=== PATIENT | male | born 2005 | race Caucasian/White ===

== ENCOUNTER 2023-03-08 15:40 | Emergency (ER) | payer OTHER ==
[~2023-03-08] VITALS: Ht 190.5 cm; Wt 149.7 kg
[2023-03-08 15:42] VITALS: BP 158/110
[2023-03-08] MEDS ORDERED: CYCL10 PO (17:39)
[2023-03-08] MEDS ORDERED: ONDA4ODT MM (17:39)
== END 2023-03-08 18:05 | disposition home or self-care (01) ==
LOC: ER 15:40
DX: S00.83XA Contusion of other part of head, initial encounter (principal); S80.02XA Contusion of left knee, initial encounter; S63.502A Unspecified sprain of left wrist, initial encounter; V28.49XA Other motorcycle driver injured in noncollision transport accident in traffic accident, initial encounter; Z91.030 Bee allergy status
CPT/HCPCS: 73130; 73562-LT; 99284-25